=== PATIENT | male | born 1945 | race Caucasian/White ===

== ENCOUNTER → 2016-07-24 | Outpatient (CLI) | payer MEDICARE, OTHER ==
[~2016-07-24] MED LIST: AMLO10TA2 PO; FLUT16SP NAS; GLIP10TA13 PO; LISI40TA PO; NEOM3.5O10 OP; TAMS0.4C2 PO; TRIA1CAP3 PO
== END | disposition home or self-care (01) ==
LOC: CFH 08:44
PROVIDERS: ATTEND Family Medicine
DX: M51.36 Other intervertebral disc degeneration, lumbar region (principal); M51.26 Other intervertebral disc displacement, lumbar region; M48.06 Spinal stenosis, lumbar region; M47.897 Other spondylosis, lumbosacral region; M25.78 Osteophyte, vertebrae
CPT/HCPCS: 72148

== ENCOUNTER → 2018-04-11 | Outpatient (CLI) | payer MEDICARE, OTHER ==
[~2018-04-11] MED LIST changes: -AMLO10TA2 PO; +AMLO10TA8 PO
== END | disposition home or self-care (01) ==
LOC: CFH 15:53
PROVIDERS: ATTEND Orthopaedic Surgery
DX: M19.011 Primary osteoarthritis, right shoulder (principal); M25.711 Osteophyte, right shoulder

== ENCOUNTER 2019-03-31 00:11 | Emergency (ER) | payer MEDICARE, OTHER ==
[~2019-03-31] VITALS: Ht 175.3 cm; Wt 114.0 kg
[~2019-03-31 00:11] MED LIST changes: -FLUT16SP NAS; +FLUT16SP24 NAS
--- NOTE | 2019-03-31 00:28 | NUR ---
PA AT BEDSIDE
--- NOTE | 2019-03-31 00:29 | NUR ---
THIS IS A 73Y M THAT COMES IN TONIGHT FOR SUDDEN ONSET OF SEVERE HEADACHE. PT ALSO REPORTS RED STREAKS BILAT ON CALVES. PT DAUGHTER IS PRESENT AND BOTH DENY HISTORY OF PISANO, MIGRAINES AND SIMILAR. PT STS HE STOOD UP TO MAKE DINNER AND GOT A VERY INTENSE HEADACHE THAT CAME ON SUDDENLY. DENIES LOC AND OTHER NEURO SYMPTOMS. PT A/O X4 NADN .
[2019-03-31] MEDS ORDERED: ONDANSETRON 2MG/ML, 2ML IVPush ONE (00:30)
[2019-03-31] MEDS ORDERED: SODIUM CHLORIDE FLUSH 10ML SYR IVF ONE (00:30)
[2019-03-31] MEDS ORDERED: MORPHINE SULFATE 4 MG/ML, 1ML IVPush PRN (00:30)
[2019-03-31] MEDS ORDERED: ONDANSETRON 2MG/ML, 2ML ONE (00:38)
[2019-03-31] MEDS ORDERED: MORPHINE SULFATE 4 MG/ML, 1ML ONE (00:38)
[2019-03-31 00:43] LABS: BASOPHILS # (AUTO) 0.05 x10^3/uL (0-0.1); BASOPHILS % (AUTO) 1 % (0-1); EOSINOPHILS # (AUTO) 0.16 x10^3/uL (0-0.4); EOSINOPHILS % (AUTO) 2 % (1-7); LYMPHOCYTES % (AUTO) 31 % (22-44); MD NO; MEAN CORPUSCULAR HEMOGLOBIN 32.7 pg (27.5-34.5); MEAN CORPUSCULAR VOLUME 96.3 fL (81-97); MEAN PLATELET VOLUME 6.7 fL (7.4-10.4); MONOCYTES # (AUTO) 0.72 x10^3/uL (0.2-0.8); MONOCYTES % (AUTO) 9 % (2-9); NEUTROPHILS # (AUTO) 4.73 x10^3/uL (1.8-6.8); NEUTROPHILS % (AUTO) 58 % (42-75); PLATELET COUNT 265 x10^3/uL (130-400); RED BLOOD COUNT 4.23 x10^6/uL (4.38-5.82); RED CELL DISTRIBUTION WIDTH 14.8 % (9.4-14.8)
[2019-03-31 00:54] LABS: ALBUMIN 3.7 g/dL (3.4-5.0); ANION GAP 9 mmol/L (5-15); CALCIUM 8.7 mg/dL (8.5-10.1); CHLORIDE 107 mmol/L (98-107); CREATININE 0.69 mg/dL (0.7-1.3)
--- NOTE | 2019-03-31 00:57 | NUR ---
PT IN CT AT THIS TIME.
[2019-03-31] MEDS ORDERED: DIPHENHYDRAMINE 50 MG/ML, 1ML ONE (01:10)
[2019-03-31] MEDS ORDERED: PROCHLORPERAZINE 5 MG/ML, 2ML ONE (01:10)
--- NOTE | 2019-03-31 01:17 | NUR ---
PT MEDICATED PER APR. VITALS UPDATED. POC DISCUSSED. PT AND FAMILY DENY CURRENT NEEDS AT THIS TIME.
[2019-03-31] MEDS ORDERED: POTASSIUM CHLORIDE 20 MEQ TAB.ER.PRT ONE (01:28)
[2019-03-31] MEDS ORDERED: PROCHLORPERAZINE 5 MG/ML, 2ML IVPush ONE (01:30)
[2019-03-31] MEDS ORDERED: DIPHENHYDRAMINE 50 MG/ML, 1ML IVPush ONE (01:30)
[2019-03-31] MEDS ORDERED: POTASSIUM CHLORIDE 20 MEQ TAB.ER.PRT PO ONE (01:30)
[2019-03-31] MEDS ORDERED: KETOROLAC 30 MG/1 ML ONE (01:33)
--- NOTE | 2019-03-31 01:35 | NUR ---
PT MEDICATED PER MAR
[2019-03-31] MEDS ORDERED: KETOROLAC 30 MG/1 ML IVPush ONE (02:00)
--- NOTE | 2019-03-31 02:27 | NUR ---
PT RESTING ON GURNEY LIGHTS DIMMED DAUGHTER AT BEDSIDE, CALL LIGHT IN REACH. PT STS HEADACHE HAS IMPROVED BUT STILL HAS PAIN.
[2019-03-31 03:42] VITALS: BP 141/72
--- NOTE | 2019-03-31 03:43 | NUR ---
Patient/Caregiver given discharge instructions and they have confirmed that they understand the instructions. Patient wheeled to d/c desk, daughter driving home. iv dc prior to leaving facility
== END 2019-03-31 03:44 | disposition home or self-care (01) ==
LOC: ED 01:32
DX: R51 Headache (principal); E87.6 Hypokalemia
CPT/HCPCS: 36415; 70450; 80048; 82040; 85025; 96374; 96375; 99284; J0780; J1200; J1885; J2270; J2405